=== PATIENT | male | born 1985 | race Two or more races ===

== ENCOUNTER 2023-09-08 17:01 | Emergency (ER) | payer SELFPAY ==
[~2023-09-08] VITALS: Ht 180.3 cm; Wt 89.8 kg
[2023-09-08] MEDS ORDERED: CYCL5TAB PO (17:31)
[2023-09-08] MEDS ORDERED: KETOROLAC TROMETHAMINE INJ 30 MG/ML VIAL ONE (17:46)
[2023-09-08] MEDS ORDERED: CYCLOBENZAPRINE 10 MG TABLET ONE (17:46)
[2023-09-08] MEDS: CYCLOBENZAPRINE 10 MG TABLET PO ONE (17:55)
[2023-09-08] MEDS: KETOROLAC TROMETHAMINE INJ 30 MG/ML VIAL IM ONE (17:55)
[2023-09-08 17:57] VITALS: BP 111/69; TEMP 98; O2SAT 98
== END 2023-09-08 18:07 | disposition home or self-care (01) ==
LOC: ER 17:01
DX: M25.511 Pain in right shoulder (principal)
CPT/HCPCS: 99283; 96372; J1885